=== PATIENT | male | born 1955 | race Two or more races ===

== ENCOUNTER 2022-01-13 19:26 | Emergency (ER) | payer OTHER ==
[~2022-01-13] VITALS: Ht 170.2 cm; Wt 71.7 kg
[2022-01-13] MEDS ORDERED: TOPROL XL50 M1 PO (19:42)
== END 2022-01-13 23:57 | disposition home or self-care (01) ==
LOC: ER 19:26
DX: S52.501A Unspecified fracture of the lower end of right radius, initial encounter for closed fracture (principal); W18.39XA Other fall on same level, initial encounter; Y93.9 Activity, unspecified; Y92.9 Unspecified place or not applicable; Y99.9 Unspecified external cause status